=== PATIENT | male | born 1985 | race Caucasian/White ===

== ENCOUNTER 2019-12-05 23:57 | Emergency (ER) | payer SELFPAY ==
[2019-12-06 00:15] VITALS: BP 107/74; BP 132/90; PULSE 77; PULSE 81; RESP 18; TEMP 36.8; O2SAT 98; BMI 31.9
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
[2019-12-06 00:25] VITALS: BP 107/74; PULSE 81; RESP 18; TEMP 36.8; O2SAT 98
[2019-12-06 01:17] LABS: MANUAL DIFF FLAG NO
[2019-12-06 01:18] LABS: Basophils Percent Auto 0.6 % (0-2); Hematocrit 44.9 % (42-52); Hemoglobin 15.2 g/dl (14.0-18.0); Imm Gran Abs Auto 0.01 X10*3/uL (0.00-0.03); Imm Gran Pct Auto 0.2 % (0.0-0.4); Lymphocytes Absolute Auto 2.6 X10*3/uL (1.2-4.9); Lymphocytes Percent Auto 40.4 % (20-40); Mean Corpuscular HGB Conc 33.9 g/dl (31.0-36.0); Mean Corpuscular Hemoglobin 31.3 pg (27.0-33.0); Mean Corpuscular Volume 92.4 fL (80-98); Mean Platelet Volume 9.7 fL (9.4-12.4); Monocytes Absolute Auto 0.3 X10*3/uL (0.1-1.2); Neutrophils Absolute Auto 3.6 X10*3/uL (2.0-8.3); Neutrophils Percent Auto 54.8 % (45-73); Platelet Count 205 X10*3/uL (160-400); Red Blood Count 4.86 X10*6/uL (4.60-5.80); Red Cell Distribution Width 13.2 % (11.0-16.0); White Blood Count 6.5 X10*3/uL (4.8-10.8)
[2019-12-06 01:53] LABS: Ethanol 138 mg/dL
[2019-12-06 01:57] LABS: Alanine Aminotransferase 19 U/L (0-40); Albumin Level 4.4 g/dL (3.5-5.0); Alkaline Phosphatase 80 U/L (39-117); Anion Gap 15 (12-20); Aspartate Amino Transferase 19 U/L (5-37); Bilirubin Total 0.5 mg/dL (0.0-1.0); Blood Urea Nitrogen 6 mg/dL (9-16); Calcium 8.9 mg/dL (8.4-10.2); Carbon Dioxide 25 mmol/L (22-29); Chloride 111 mmol/L (96-108); Creatinine Clr Calc Pharmacy 144.7; Estimated Glomerular Filt Rate > 60; Glucose Random 85 mg/dL (60-115); Potassium 4.4 mmol/l (3.3-5.1); Sodium 147 mmol/L (135-145); Total Protein 6.9 g/dL (6.5-8.0)
[2019-12-06 02:00] VITALS: RESP 18
[2019-12-06 03:46] VITALS: RESP 18
[2019-12-06 05:16] VITALS: RESP 18
[2019-12-06] MEDS: clonazePAM 1 MG TABLET PO (06:23)
--- NOTE | 2019-12-06 07:26 | PC.NURSE ---
Report received from YOBANY Jolley. Pt resting, resp unlabored.
--- NOTE | 2019-12-06 07:48 | PC.NURSE ---
Pt seen by care team- to be discharged per care team. care team arranging transportation.
[2019-12-06 08:10] VITALS: BP 121/78; PULSE 88; RESP 20; O2SAT 98
== END 2019-12-06 08:41 | disposition home or self-care (01) ==
PROVIDERS: Emergency Provider Student in an Organized Health Care Education/Training Program
DX: F10.129 Alcohol abuse with intoxication, unspecified (principal); R45.851 Suicidal ideations; F17.200 Nicotine dependence, unspecified, uncomplicated; Y90.6 Blood alcohol level of 120-199 mg/100 ml; Z79.899 Other long term (current) drug therapy; Z71.6 Tobacco abuse counseling
CPT/HCPCS: 36415; 80053; 80320; 85025; 99284; 99285